=== PATIENT | female | born 1965 | race Caucasian/White ===

== ENCOUNTER 2022-06-09 15:00 | Emergency (ER) | payer OTHER, SELFPAY ==
[2022-06-09 15:35] VITALS: BP 159/80; PULSE 71; RESP 20; TEMP 35.8; O2SAT 97; BMI 31.1
--- NOTE | 2022-06-09 16:00 | ED.WOUNDLAC ---
HPI - Wound/Laceration General Chief Complaint: Laceration/Wound Stated Complaint: Finger Laceration Time Seen by Provider: 06/09/22 15:28 Source: patient Mode of arrival: ambulatory Limitations: no limitations History of Present Illness HPI narrative: Gretchen is a 56-year-old female patient without significant past medical history that presents to emergency department via POV with complaints of laceration to her right 5th digit. The patient states that she was using a mandolin slicer just prior to arrival when she felt a sharp stinging to the right 5th digit and noted laceration with bleeding. She was using a guard with the slicer. The patient placed a dressing on the wound and presented immediately to the emergency department for further evaluation and treatment. She denies numbness, tingling, or weakness. She denies decreased range of motion. She has no other acute concerns or complaints. Her tetanus status is up-to-date. Related Data Home Medications Medication Instructions Recorded Confirmed citalopram 40 mg tablet (Celexa) 40 mg PO DAILY 06/09/22 06/09/22 trazodone 50 mg tablet 50 mg PO DAILY PRN 06/09/22 06/09/22 Allergies Allergy/AdvReac Type Severity Reaction Status Date / Time Sulfa (Sulfonamide Allergy Hives Verified 06/09/22 15:39 Antibiotics) Review of Systems Const: Denies: fever, chills, fatigue or malaise Musculo: Denies: joint pain or limited range of motion Integ/Breast: Reports: new lesion (laceration to left 5th digit); Denies: rash Neuro: Denies: numbness in extremities, weakness in extremities, lack of coordination or dizziness Psych: Denies: anxiety Endo: Denies: fatigue Marc/Lymph: Denies: easy bleeding PFSH PFSH Social History Smoking Status: Current every day smoker What tobacco products do you use: cigarettes Do you use any of these nicotine containing products: None How often do you have a drink containing alcohol: 2-3 times a week How many standard drinks containing alcohol do you have on a typical day: 1 or 2 How often do you have six or more drinks on one occasion: Never AUDIT-C Alcohol total score: 3 Non-prescribed substance use: denies use Exam Const: Vital Signs, click to edit/add: Vital Signs - 24 hr 06/09/22 15:35 Temperature 96.5 F L Pulse Rate [Left P ulse Oximeter] 71 Respiratory Rate 20 Blood Pressure [Le ft Upper Arm] 159/80 H Pulse Oximetry 97 Oxygen Delivery Me thod Room Air Documenting provider has reviewed patient's vital signs: yes Common normals: no apparent distress, average body habitus, oriented x3, no limitations, healthy appearing, alert and well nourished General appearance: cooperative, comfortable, well kempt and well developed; not in distress Orientation/consciousness: Yes awake, Yes oriented to person, Yes oriented to place and Yes oriented to time HENMT: Common normals: normocephalic and head/scalp atraumatic Head and scalp: normocephalic and atraumatic Resp: Common normals: normal respiratory effort and no use of accessory muscles Effort & inspection: able to speak in complete sentences Cardio: Common normals: peripheral pulses 2+ throughout Peripheral pulses: pulses 2+ throughout Extremity: Common normals: normal to inspection, full ROM, normal capillary refill and no clubbing, cyanosis or edema General: normal exam except as noted and other findings (avulsion of the distal right fifth fingerpad on the medial aspect) Neuro: Common normals: oriented x3 Sensorium/orientation: awake, alert, oriented to person, oriented to place and oriented to time Psych: Common normals: mental status grossly normal, thought process normal and speech normal Appearance: well kempt Attitude: calm Speech: normal speech Thought process: normal thought process Thought content: normal thought content Attention/concentration: attention grossly intact Memory/cognition: memory grossly intact Insight: insight good Judgement: judgment good Skin: Trauma: laceration irregular and avulsion (0.7cm x 0.3cm) Nails: normal Course Course Hospital Course: Gretchen presented to the ED for treatment of the laceration of the 5th right digit that was found to be an avulsion injury without skin to close. A surgifoam was applied to the wound with good hemostasis. The patient was then dressed with bacitracin and wound dressing. The patient remained without other acute concern or complaint while in the ED. She had good sensation, movement, and ROM during the encounter. Vital Signs Vital signs: Initial Vital Signs Temperature 96.5 F L 06/09/22 15:35 Temperature Source Temporal Artery Scan 06/09/22 15:35 Pulse Rate 71 06/09/22 15:35 Pulse Rhythm 06/09/22 15:35 Respiratory Rate 20 06/09/22 15:35 Blood Pressure 159/80 H 06/09/22 15:35 Blood Pressure Mean 106 06/09/22 15:35 Pulse Oximetry 97 06/09/22 15:35 Oxygen Delivery Method 06/09/22 15:35 Vital Signs Temperature 96.5 F L 06/09/22 15:35 Pulse Rate 71 06/09/22 15:35 Respiratory Rate 20 06/09/22 15:35 Blood Pressure 159/80 H 06/09/22 15:35 Pulse Oximetry 97 06/09/22 15:35 Oxygen Delivery Method 06/09/22 15:35 Temperature 96.5 F L 06/09/22 15:35 Pulse Rate 71 06/09/22 15:35 Respiratory Rate 20 06/09/22 15:35 Blood Pressure 159/80 H 06/09/22 15:35 Pulse Oximetry 97 06/09/22 15:35 Oxygen Delivery Method 06/09/22 15:35 MDM - Wound/Laceration Differential Diagnosis Differential diagnosis: Likely laceration and avulsion of skin Discharge Plan Discharge Clinical Impression: Avulsion of skin Patient Disposition: Home, Self-Care Condition: Stable Instructions: Skin Avulsion (ED) Additional Instructions: Thank you for choosing [facility] for your care today. Keep wound clean and dry for the next 24-48hrs. Then, clean the wound daily with mild soap (Dove Sensitive Skin Bar, Cetaphil Daily Cleanser, or Vanicream) and warm water. Pat dry and immediately apply a thin layer of Vaseline or triple antibiotic ointment. Wounds that are kept moist with Vaseline heal faster and have a better scar. Cover with a band-aid or nonstick dressing. Only remove the bandage for showers and dressing changes. If you have problems reacting to the band-aid adhesive, cover the wound with a non-stick gauze pad and use paper tape to keep it in place. If you notice increasing pain, redness spreading away from the wound, yellow or green drainage requiring bandages to be changed multiple times per day, or fever greater than 100.5 F, please return for reevaluation. If your wound begins to bleed, apply firm pressure with gauze for 20 continuous minutes. Resist the urge to check the wound by peeking under your gauze. Every time you lift the gauze, the blood vessels open and the clotting process needs to start over again. I recommend calling primary care for follow-up in the next 3-5 days for suture removal as noted. If new or worsening symptoms develop or you have any concerns in the meantime, please call your primary care clinic or return to the ER for re-evaluation. Activity Level: Activity as Tolerated Discharge Diet: Regular Prescriptions: No Action citalopram [Celexa] 40 mg tablet 40 mg PO DAILY trazodone 50 mg tablet 50 mg PO DAILY PRN Follow Up/Referrals: Provider,Not a Local [Primary Care Provider] - Stand Alone Forms: [facility] Info Instructions Procedures Laceration Laceration 1: Pre procedure diagnosis: laceration Post procedure diagnosis: avulsion Site: hand (fifth digit, right hand) Side (If applicable): right Size (cm): 0.7 Description: irregular Depth: simple, single layer Pre-repair: irrigated extensively Conclusion: patient tolerated procedure
[2022-06-09] MEDS: BACITRACIN 0.9 GM PACKET 1 EACH TOPICAL (16:08)
== END 2022-06-09 16:30 | disposition home or self-care (01) ==
PROVIDERS: Emergency Provider Family Medicine
DX: S61.216A Laceration without foreign body of right little finger without damage to nail, initial encounter (principal); W27.8XXA Contact with other nonpowered hand tool, initial encounter; Y93.G3 Activity, cooking and baking; Y92.010 Kitchen of single-family (private) house as the place of occurrence of the external cause
CPT/HCPCS: 99281; 99282; A9270

== ENCOUNTER 2024-07-10 10:06 | Outpatient (CLI) | payer BC, SELFPAY | END 2024-07-10 10:07 | disposition home or self-care (01) | LOC: AMB 07-14 01:09 | PROVIDERS: Visit Provider Family Medicine | DX: R53.1 Weakness (principal) | CPT/HCPCS: A0425; A0427 ==

== ENCOUNTER 2024-07-10 10:35 | Emergency (ER) | payer BC, SELFPAY ==
--- NOTE | 2024-07-10 | CRLHL7_ITS ---
For Patients: As a result of the Century Cures Act, medical imaging exams and procedure reports are released immediately into your electronic medical record. You may view this report before your referring provider. If you have questions, please contact your health care provider. Indication: Code blue, central line and intubation Technique: Chest 1 view Comparison: None Findings/Impression: Cardiovascular and mediastinum: Normal heart size. Endotracheal tube with tip at the mid tracheal level. Enteric tube extends to the level of the diaphragm although the tip is not well seen due to overlying life support devices. Question whether this is coiled with the tip in the distal esophagus. Right internal jugular line with tip at the cavoatrial junction. Lungs and pleural space: Defibrillator pads overlie the chest. No pleural effusion or pneumothorax. Pulmonary cephalization with bilateral interstitial and alveolar opacities consistent with pulmonary edema, greater on the right. Bones and soft tissues: Surgical clips overlie the left lung apex. Dictated by Mario Allan MD @ 07/10/2024 11:50:48 AM (Electronically Signed)
[2024-07-10 10:35] VITALS: TEMP 2.1; TEMP 35.7; BMI 29.9
[2024-07-10] MEDS: EPINEPHrine 0.1 MG/ML SYRINGE 1 MG IVP ×4 (11:00→16:15)
[2024-07-10] MEDS: MIDAZOLAM HCL 1 MG/ML inj IVP ×2 (11:00→11:30)
[2024-07-10] MEDS: AMIODARONE 50 MG/ML 300 MG IVP (11:00)
[2024-07-10] MEDS: ATROPINE 1 MG/10 ML SYRINGE IVP ×3 (11:00→11:15)
[2024-07-10] MEDS: CALCIUM CHLORIDE IVPB (11:05)
[2024-07-10] MEDS: NALOXONE 1 MG/ML SYRINGE IVPB (11:15)
[2024-07-10 11:22] LABS: HCO3 VBG 13 mmol/L (21-28); PO2 VBG < 30.1 mmHG (25-47)
[2024-07-10 11:24] LABS: Basophils Absolute Auto 0.02 K/uL (0.00-0.30); Basophils Percent Auto 0.2 % (0.0-3.0); Eosinophils Absolute Auto 0.07 K/uL (0.00-0.50); Eosinophils Percent Auto 0.8 % (0.0-7.0); Hematocrit 50.6 % (33.0-51.0); Hemoglobin* 15.5 gm/dL (12.0-16.0); Immature Granulocytes Abs Auto 0.22 K/uL (0.00-0.30); Immature Granulocytes Pct Auto 2.4 %; Lactate* 9.8 mmol/L (0.5-1.9); Lymphocytes Percent Auto 28.2 % (20-44); Mean Corpuscular HGB Conc 31 gm/dL (32-36); Mean Corpuscular Hemoglobin 33 pg (26-34); Mean Corpuscular Volume 106 fL (80-100); Monocytes Percent Auto 1.6 % (0.0-11.0); Neutrophils Absolute Auto 6.16 K/uL (1.7-7.0); Neutrophils Percent Auto 66.8 % (42.0-72.0); Platelet Count* 99 K/uL (140-440); RDW Coefficient of Variation % 11.7 % (11.5-15.5); Red Blood Count 4.76 m/uL (4.00-5.20); White Blood Count* 9.22 K/uL (4.50-11.00); pH VBG 6.854 (7.32-7.43)
[2024-07-10 11:25] LABS: PCO2 VBG 76 mmHG (40-50)
[2024-07-10] MEDS: SODIUM BICARBONATE 1 MEQ/ML 50 MEQ IV ×3 (11:25→13:30)
[2024-07-10 11:26] LABS: Slide Review Reflex No
[2024-07-10] MEDS: NALOXONE 1 MG/ML SYRINGE 2 MG IV (11:30)
[2024-07-10 11:39] LABS: Chloride* 116 mmol/L (96-114); Glucose* 228 mg/dL (60-115); Potassium* 3.7 mmol/L (3.6-5.1); Sodium* 140 mmol/L (135-149)
--- NOTE | 2024-07-10 11:50 | ED.NURSE ---
ketamine started by air care team
[2024-07-10 11:51] LABS: Anion Gap 14 mEq/L (7-15); Carbon Dioxide* 10 mmol/L (20-32)
[2024-07-10 11:52] LABS: Blood Urea Nitrogen* 9 mg/dL (7-30); Calcium* 8.1 mg/dL (8.4-10.6); Estimated Glomerular Filt Rate 64 ml/min
[2024-07-10 11:54] LABS: Alanine Aminotransferase* 154 U/L (4-35); Albumin* 1.9 g/dL (3.3-5.0); Alkaline Phosphatase* 72 U/L (40-150); Aspartate Amino Transferase* 204 U/L (12-35); Bilirubin Direct* 0.4 mg/dL (0.0-0.5); Bilirubin Total* 0.5 mg/dL (0.1-1.5); Total Protein* 3.8 g/dL (6.0-8.3); Troponin I* 0.05 ng/mL (0.01-0.04)
[2024-07-10] MEDS: fentaNYL 100 MCG/2 ML inj 50 MCG IVP (11:55)
[2024-07-10 11:59] LABS: Appearance Urine Cloudy (Clear); Bilirubin Urine 1+ (Negative); Blood Urine 3+ (Negative); Color Urine Red (Yellow); Glucose Urine 2+ (Negative); Ketones Urine Trace (Negative); Leukocyte Esterase Urine Negative (Negative); Nitrite Urine Positive (Negative); Protein Urine 3+ (Negative); Urobilinogen Urine 0.2 (0.2-1.0)
[2024-07-10 12:06] LABS: Amphetamine Screen Urine Negative (Negative); Barbiturate Screen Urine Negative (Negative); Benzodiazepines Screen Urine Negative (Negative); Cannabinoid Screen Urine POSITIVE (Negative); Cocaine Screen Urine Negative (Negative); Methadone Screen Urine Negative (Negative); Methamphetamines Screen Urine Negative (Negative); Opiate Screen Urine Negative (Negative); Oxycodone Screen Urine Negative (Negative); Phencyclidine Screen Urine Negative (Negative); Tricyclic Antidepressant Urine Negative (Negative)
--- NOTE | 2024-07-10 12:57 | P.PCN_ITS ---
Procedure Note Date Seen: 07/10/24 Will [facility] bill your pro fee for this procedure?: Yes Pre-op diagnosis: Hypotension after cardiac arrest Post-op diagnosis: same Procedure: Attempted left femoral arterial line placement Procedure Description: The patient was seen in the ER for cardiac arrest. ROSC was obtained and transfer to a tertiary care facility was arranged. The patient was on increasing pressors but no blood pressure was able to be obtained. Air transport desired an arterial line for blood pressure monitoring. The patient's radial arteries were palpated, no pulse was palpable. Ultrasound was used to visualize the radial arteries and no obvious pulsatile vessel was noted. I examined the left femoral area. The left femoral artery was visualized with ultrasound easily, a needle was advanced. Blood return was very weakly pulsatile. Using seldinger technique, a wire was passed through the needle. The wire would not thread easily into the vessel. The wire was removed and the needle angle adjusted and flow stopped. I attempted a second time, again under ultrasound, to access the femoral artery. Again, the needle was advanced into the vessel with weak pulsatile flow. The wire was advanced this time more easily past the wire, but I could not advance it far enough into the artery. I removed the wire and again there was pulsatile flow. I attempted to pass the wire a second time but again I was unable to pass it. At this point the transport team decided to travel via ground and for this an arterial line was not necessary and therefore I aborted further attempts. Pressure was held on the left groin. No bleeding was noted. Surgeon: Elieser Condition: critical Disposition: other (ER)
--- NOTE | 2024-07-10 13:04 | W.ANESCHARGE ---
Anesthesia Charges Start Date/Time Anesthesia Start Date: 07/10/24 Anesthesia Start Time: 10:30 Stop Date/Time Anesthesia Stop Date: 07/10/24 Anesthesia Stop Time: 11:30 Summary Emergency: [employer]
[2024-07-10] MEDS: NALOXONE 1 MG/ML SYRINGE 2 MG IVPB (13:25)
--- NOTE | 2024-07-10 13:27 | PM.ANBPRC ---
PFSH PFS Social History Smoking Status: Current every day smoker What tobacco products do you use: cigarettes Do you use any of these nicotine containing products: None How often do you have a drink containing alcohol: 2-3 times a week How many standard drinks containing alcohol do you have on a typical day: 1 or 2 How often do you have six or more drinks on one occasion: Never AUDIT-C Alcohol total score: 3 Non-prescribed substance use: denies use Meds Home Medications and Allergies Home Medications ?Medication ?Instructions ?Recorded ?Confirmed ?Type citalopram 40 mg tablet (Celexa) 40 mg PO DAILY 06/09/22 06/09/22 History trazodone 50 mg tablet 50 mg PO DAILY PRN 06/09/22 06/09/22 History Allergies Allergy/AdvReac Type Severity Reaction Status Date / Time Sulfa (Sulfonamide Allergy Hives Verified 06/09/22 15:39 Antibiotics) Results Labs Labs: Laboratory Results - last 24 hr 07/10/24 07/10/24 11:15 11:50 WBC 9.22 RBC 4.76 Hgb 15.5 Hct 50.6 MCV 106 H MCH 33 MCHC 31 L RDW Coeff of Tessie 11.7 Plt Count 99 L Neut % (Auto) 66.8 Lymph % (Auto) 28.2 [place] % (Auto) 1.6 Eos % (Auto) 0.8 Baso % (Auto) 0.2 Neut # (Auto) 6.16 Lymph # (Auto) 2.60 [place] # (Auto) 0.10 Eos # (Auto) 0.07 Baso # (Auto) 0.02 Abs Immat Gran (auto) 0.22 Imm/Tot Granulo (auto) 2.4 VBG pH 6.854 L* VBG pCO2 76 H* VBG pO2 < 30.1 VBG HCO3 13 L Sodium 140 Potassium 3.7 Chloride 116 H Carbon Dioxide 10 L Anion Gap 14 BUN 9 Creatinine 1.0 Estimated GFR 64 Glucose 228 H Lactate 9.8 H* Calcium 8.1 L Total Bilirubin 0.5 Direct Bilirubin 0.4 AST 204 H ALT 154 H Alkaline Phosphatase 72 Troponin I 0.05 H Total Protein 3.8 L Albumin 1.9 L Urine Color Red A Urine Appearance Cloudy A Urine pH 6.0 Ur Specific [place] 1.020 Urine Protein 3+ A Urine Glucose (UA) 2+ A Urine Ketones Trace A Urine Blood 3+ A Urine Nitrite Positive A Urine Bilirubin 1+ A Urine Urobilinogen 0.2 Ur Leukocyte Esterase Negative Urine RBC 10-25 A Urine WBC 2-5 Ur Squamous Epith Cells None Urine Bacteria None Urine Opiates Screen Negative Ur Oxycodone Screen Negative Urine Methadone Screen Negative Ur Barbiturates Screen Negative U Tricyclic Antidepress Negative Ur Phencyclidine Scrn Negative Ur Amphetamines Screen Negative U Methamphetamines Scrn Negative U Benzodiazepines Scrn Negative Urine Cocaine Screen Negative U Marijuana (THC) Screen POSITIVE A Ur Drug Screen Comment See Note Anesthesia Procedures Airway Patient Location: ED Urgency: emergent Start Time: 10:30 Stop Time: 11:30 Start Date: 07/10/24 Stop Date: 07/10/24 Anesthesiologist: Rj Espinal [employer] SPECIALIST: Gloria Denton Other Anesthesia Staff: Junaid Gayle Performed by: BELLA Indications for Airway Management: cardio/ pulmonary arrest Spontaneous Ventilation: absent Sedation Level: minimal Preoxygenated: Yes Mask Difficulty Assessment: 0 - not attempted Planned Trial Extubation: No Final Airway Type: endotracheal airway Dentition Unchanged: Yes
[2024-07-10 13:38] VITALS: RESP 26
--- NOTE | 2024-07-10 14:10 | ED.NURSE ---
at 1355 family requested to see pt while aislinn running. after entering room, family requesting to stop aislinn/CPR . all efforts stopped at 1355. family was in room
--- NOTE | 2024-07-10 14:19 | ED_ITS ---
HPI - General Adult General Date Seen: 07/10/24 Chief complaint: Altered Mental Status Stated complaint: weakness Time Seen by Provider: 07/10/24 11:56 Source: patient and EMS Mode of arrival: EMS Limitations: no limitations and altered mental status History of Present Illness HPI narrative: Patient is a 58-year-old female brought in by EMS for weakness. EMS states when they arrived her blood pressure sure was 100 systolic. She called them. On the route and EMS said her blood pressure systolic dropped down to the 50s. She was unable to answer any questions at that time and became obtunded. I was called into the room when she arrived and patient is obtunded not able answer questions and had shallow breathing. Related Data Home Medications ?Medication ?Instructions ?Recorded ?Confirmed citalopram 40 mg tablet (Celexa) 40 mg PO DAILY 06/09/22 06/09/22 trazodone 50 mg tablet 50 mg PO DAILY PRN 06/09/22 06/09/22 Allergies Allergy/AdvReac Type Severity Reaction Status Date / Time Sulfa (Sulfonamide Allergy Hives Verified 06/09/22 15:39 Antibiotics) Review of Systems Status of ROS: Reports: unobtainable due to medical condition PFSH PFS Social History Smoking Status: Current every day smoker What tobacco products do you use: cigarettes Do you use any of these nicotine containing products: None How often do you have a drink containing alcohol: 2-3 times a week How many standard drinks containing alcohol do you have on a typical day: 1 or 2 How often do you have six or more drinks on one occasion: Never AUDIT-C Alcohol total score: 3 Non-prescribed substance use: denies use and marijuana (any form) Exam Narrative: Exam Narrative: Airway: Very shallow breathing noted, does not appear to be obstructed Breathing: Very shallow, unable to speak due to mental status Circulation: Weak pulses Const: Well-nourished, Well-developed, obtunded Eyes: PERRL, no conjunctival injection, and symmetrical lids HENT: Atraumatic external nose and ears. Moist mucous membranes. Neck: Symmetric, trachea midline, No thyromegaly. CVS: Bradycardic, weak pulses RESP: Shallow breaths initially GI: Nondistended MSK:Extremities w/o deformity, Normal Active ROM Skin: Warm, Dry. No rashes or lesions. Neuro: Not following command, unresponsive Psych: Obtunded Const: Vital Signs, click to edit/add: Vital Signs - 24 hr 07/10/24 10:35 07/10/24 12:38 Temperature 35.7 F L Oxygen Delivery Me thod Nasal Cannula Intubated Course Vital Signs Vital signs: Initial Vital Signs Temperature 35.7 F L 07/10/24 10:35 Temperature Source Rectal 07/10/24 10:35 Oxygen Delivery Method Nasal Cannula 07/10/24 10:35 Vital Signs Temperature 35.7 F L 07/10/24 10:35 Oxygen Delivery Method Nasal Cannula 07/10/24 10:35 Temperature 35.7 F L 07/10/24 10:35 Respiratory Rate 26 H 07/10/24 13:38 Oxygen Delivery Method Intubated 07/10/24 12:38 Medications Administered Medications: Discontinued Medications Generic Name Dose Route Start Last Admin Trade Name Freq PRN Reason Stop Dose Admin Amiodarone HCl 300 mg 07/10/24 10:58 07/10/24 11:00 Amiodarone 50 Mg/Ml Inj IVP 07/10/24 10:59 300 mg ONCE ONE Administration Atropine Sulfate 1 mg 07/10/24 10:45 07/10/24 11:00 Atropine 1 Mg/10 Ml Syringe IVP 07/10/24 10:46 1 mg ONCE ONE Administration Atropine Sulfate 1 mg 07/10/24 11:11 07/10/24 11:10 Atropine 1 Mg/10 Ml Syringe IVP 07/10/24 11:12 1 mg ONCE ONE Administration Atropine Sulfate 1 mg 07/10/24 11:17 07/10/24 11:15 Atropine 1 Mg/10 Ml Syringe IVP 07/10/24 11:18 1 mg ONCE ONE Administration Atropine Sulfate 1 mg 07/10/24 13:24 07/10/24 13:25 Atropine 0.4 Mg/Ml Inj IV 1 mg ONCE PRN Administration Calcium Chloride 1 g 07/10/24 11:07 07/10/24 11:05 Calcium Chloride 1 G/10 Ml Inj IVPB 07/10/24 11:08 1 g ONCE ONE Administration Epinephrine HCl 1 mg 07/10/24 10:50 07/10/24 11:00 Epinephrine 0.1 Mg/Ml Syringe IVP 07/10/24 10:51 1 mg ONCE ONE Administration Epinephrine HCl 1 mg 07/10/24 11:03 07/10/24 11:00 Epinephrine 0.1 Mg/Ml Syringe IVP 07/10/24 11:04 1 mg ONCE ONE Administration Epinephrine HCl 1 mg 07/10/24 11:08 07/10/24 16:15 Epinephrine 0.1 Mg/Ml Syringe IVP 07/10/24 11:09 1 mg ONCE ONE Administration Epinephrine HCl 1 mg 07/10/24 13:20 07/10/24 13:20 Epinephrine 0.1 Mg/Ml Syringe IVP 07/10/24 13:21 1 mg ONCE ONE Administration Fentanyl 50 mcg 07/10/24 11:56 07/10/24 11:55 Fentanyl 100 Mcg/2 Ml Inj IVP 07/10/24 11:57 50 mcg ONCE ONE Administration Sodium Bicarbonate 150 meq/ 1,150 mls @ 150 mls/hr 07/10/24 12:20 07/10/24 16:37 Dextrose IV 150 mls/hr .[id number] BOYD Administration Midazolam HCl 1 mg 07/10/24 10:45 07/10/24 11:00 Midazolam Hcl 1 Mg/Ml Inj IVP 07/10/24 10:46 1 mg ONCE ONE Administration Midazolam HCl 1 mg 07/10/24 11:49 07/10/24 11:30 Midazolam Hcl 1 Mg/Ml Inj IVP 07/10/24 11:50 1 mg ONCE ONE Administration Naloxone HCl 1 mg 07/10/24 11:13 07/10/24 11:15 Naloxone 1 Mg/Ml Syringe IVPB 07/10/24 11:14 1 mg ONCE ONE Administration Naloxone HCl 2 mg 07/10/24 11:28 07/10/24 11:30 Naloxone 1 Mg/Ml Syringe IV 07/10/24 11:29 2 mg ONCE ONE Administration Naloxone HCl 2 mg 07/10/24 13:23 07/10/24 13:25 Naloxone 1 Mg/Ml Syringe IVPB 07/10/24 13:24 2 mg ONCE ONE Administration Sodium Bicarbonate 50 meq 07/10/24 11:27 07/10/24 11:25 Sodium Bicarbonate 1 Meq/Ml Inj IV 07/10/24 11:28 50 meq ONCE ONE Administration Sodium Bicarbonate 50 meq 07/10/24 12:16 07/10/24 12:15 Sodium Bicarbonate 1 Meq/Ml Inj IV 07/10/24 12:17 50 meq ONCE ONE Administration Sodium Bicarbonate 50 meq 07/10/24 13:31 07/10/24 13:30 Sodium Bicarbonate 1 Meq/Ml Inj IV 07/10/24 13:32 50 meq ONCE ONE Administration Succinylcholine Chloride 80 mg 07/10/24 10:46 07/10/24 16:12 Succinylcholine 20 Mg/Ml Inj IVP 07/10/24 10:47 80 mg ONCE ONE Administration Medical Decision Making MDM Narrative Medical decision making narrative: Patient is a 58-year-old female presenting to the emergency department hypotensive, bradycardic, unresponsive. When I 1st arrived she did have a very weak pulse and had shallow breathing but she was hypotensive and her breathing continued to get worse. At that time was decided to call a code blue to get staff available to help as fast as possible. We decided to intubate as I do not believe she was breathing adequately and CPR was started as we could no longer feel a pulse. Were unable to get a peripheral line so an IO was placed in each tibia. Once the aisles were placed we use pressure of aches to get into L of fluids. She had no response to this. ACLS was started and 1st dose was atropine with her bradycardia. The 1st dose of atropine brought her heart rate up to the 110s for short amount of time but she was still hypotensive. When they were able to get her intubated I have brownish green material was suctioned from the tube. Were having difficulty getting her saturations and end-tidal elevated and were just and vent settings accordingly with no improvement. Also gave calcium in case this is related to hyperkalemia. ACS protocol was followed. Luis F used for CPR I considered a tension pneumothorax causing his symptoms but she had good breath sounds bilaterally when she was intubated. PE seems unlikely as when I was able to get the ultrasound on her heart I do not see a dilated right ventricle. I also do not see cardiac tamponade. She was not hypothermic. Her electrolytes came back showing no abnormalities that would be causing her symptoms. Did consider bradycardia could be caused by an overdose and did try Narcan and the 1st dose of Narcan did seem to improve her heart rate into the 40s. Continue ACLS. She did not respond to the fluid boluses at all and hesitant to keep pumping her full of fluid as it could cause fluid overload worsening her symptoms. Lab work returned showing normal electrolytes but she did have a lactic acidosis in a pH of 6.8. Bicarb was given. Eventually we gave another dose of Narcan and suddenly her heart rate improved and now she appears to have a normal sinus rhythm in the 90s. Strong femoral pulses felt. Unsure if this was related to the Narcan. Either way she still hypotensive and nor epi was started while as placed a central line. Central line place nor epi switched to the central line. Versed and ketamine used for sedation. Did not want to use propofol as she was having issues hypertension. If decided to transfer her to [place] ICU and my colleague helped with the transfer. Ultrasound of the heart was done by myself and did show a strong cardiac squeeze. Flight crew arrived. When flight crew arrived patient became hypotensive again and epi was added. Patient was fighting the ventilator and multiple ketamine boluses given to try and sedate her. Hesitant to try other medications as other sedation medications can cause hypotension and she was already having issues hypotension. We were eventually able to get her blood pressure improved again and she was maxed out on all drips. Before she was going to leave her pulse became very weak and could not get a blood pressure. Due to that an art line need to be placed before they could take care via air due to her being unstable. While awaiting to get art line and we did call ground transport to trying get her transverse fast as possible if it has to be via ground. We were unable to get the art line the patient's pulses were coming weaker. She became PA again hand bradycardiac. We then tried atropine, bicarb, epi, Narcan and nothing seemed to improve. I did a cardiac ultrasound again and now her heart seems to be barely moving. I am considering all causes and with the improvement in her symptoms earlier with medications and the normal appearing heart on ultrasound PE and tamponade still seem unlikely. Still have good lung sounds and no sign tension pneumothorax. Electrolytes were normal and elected abnormalities do not believe to be the cause. Her family states she has no history of overdoses and is not type person who would overdose on any medications. No other medication she is prescribed but I am aware of would be likely to cause the symptoms. Does not appear to be serotonin syndrome. Part of this could be from acidosis but unsure why she is developing acidosis. Acidosis might all be from lactate but that brings up but is causing lactic acidosis peer More bicarb was given. Did repeat labs and her sodium went up to 150 but does not seem to be high enough that would have been causing the symptoms and she became more acidotic. ACS protocol follow Considering she was initially bradycardic and hypotensive I did consider she could be having neurogenic shock. She did have some rectal bleeding and blood in her catheter that was placed in also seem to be developing hematoma whenever she was straight stick. She could of been developing DIC likely from how sick she was. There was possible to she had a brain herniation causing this neurogenic shock but it seems odd that her symptoms improved without hypertonic saline. Her pupils are now dilated and are nonreactive. Considering the length of treatment I do not believe she will be able to recover from this and after extensive talk with other staff members I decided to terminate CPR. I did speak to the family before terminating CPR and they were agreeable to this. Time of 13:55 Lab Data Labs: Lab Results 07/10/24 07/10/24 Range/Units 11:15 11:50 WBC 9.22 (4.50-11.00) K/uL RBC 4.76 (4.00-5.20) m/uL Hgb 15.5 (12.0-16.0) gm/dL Hct 50.6 (33.0-51.0) % MCV 106 H (80-100) fL MCH 33 (26-34) pg MCHC 31 L (32-36) gm/dL RDW Coeff of Tessie 11.7 (11.5-15.5) % Plt Count 99 L (140-440) K/uL Neut % (Auto) 66.8 (42.0-72.0) % Lymph % (Auto) 28.2 (20-44) % [place] % (Auto) 1.6 (0.0-11.0) % Eos % (Auto) 0.8 (0.0-7.0) % Baso % (Auto) 0.2 (0.0-3.0) % Neut # (Auto) 6.16 (1.7-7.0) K/uL Lymph # (Auto) 2.60 (0.90-2.90) K/uL [place] # (Auto) 0.10 (0.00-0.90) K/UL Eos # (Auto) 0.07 (0.00-0.50) K/uL Baso # (Auto) 0.02 (0.00-0.30) K/uL Abs Immat Gran (auto) 0.22 (0.00-0.30) K/uL Imm/Tot Granulo (auto) 2.4 % VBG pH 6.854 L* (7.32-7.43) VBG pCO2 76 H* (40-50) mmHG VBG pO2 < 30.1 (25-47) mmHG VBG HCO3 13 L (21-28) mmol/L Sodium 140 (135-149) mmol/L Potassium 3.7 (3.6-5.1) mmol/L Chloride 116 H (96-114) mmol/L Carbon Dioxide 10 L (20-32) mmol/L Anion Gap 14 (7-15) mEq/L BUN 9 (7-30) mg/dL Creatinine 1.0 (0.5-1.5) mg/dL Estimated GFR 64 ml/min Glucose 228 H (60-115) mg/dL Lactate 9.8 H* (0.5-1.9) mmol/L Calcium 8.1 L (8.4-10.6) mg/dL Total Bilirubin 0.5 (0.1-1.5) mg/dL Direct Bilirubin 0.4 (0.0-0.5) mg/dL AST 204 H (12-35) U/L ALT 154 H (4-35) U/L Alkaline Phosphatase 72 (40-150) U/L Troponin I 0.05 H (0.01-0.04) ng/mL Total Protein 3.8 L (6.0-8.3) g/dL Albumin 1.9 L (3.3-5.0) g/dL Urine Color Red A (Yellow) Urine Appearance Cloudy A (Clear) Urine pH 6.0 (5.0-8.5) Ur Specific [place] 1.020 (1.000-1.030) Urine Protein 3+ A (Negative) Urine Glucose (UA) 2+ A (Negative) Urine Ketones Trace A (Negative) Urine Blood 3+ A (Negative) Urine Nitrite Positive A (Negative) Urine Bilirubin 1+ A (Negative) Urine Urobilinogen 0.2 (0.2-1.0) Ur Leukocyte Esterase Negative (Negative) Urine RBC 10-25 A (0-2) Urine WBC 2-5 (0-5) Ur Squamous Epith Cells None (None-Few) Urine Bacteria None (None) Urine Opiates Screen Negative (Negative) Ur Oxycodone Screen Negative (Negative) Urine Methadone Screen Negative (Negative) Ur Barbiturates Screen Negative (Negative) U Tricyclic Antidepress Negative (Negative) Ur Phencyclidine Scrn Negative (Negative) Ur Amphetamines Screen Negative (Negative) U Methamphetamines Scrn Negative (Negative) U Benzodiazepines Scrn Negative (Negative) Urine Cocaine Screen Negative (Negative) U Marijuana (THC) Screen POSITIVE A (Negative) Ur Drug Screen Comment See Note Critical Care Time Critical Care Time Critical Care Time: Yes Attestation: The patient required my highest level preparedness to intervene emergently and I personally spent this critical care time directly and personally managing the patient. This critical care time included: Obtaining a history; Examining the patient; Pulse oximetry; Ordering and reviewing of studies; Arranging urgent treatment with development of a management plan; Evaluation of patients response to treatment; Frequent reassessment discussions with other providers. This critical care time was performed to assess and manage the high probability of imminent life-threatening deterioration that could result in multiorgan failure. It was exclusive of separate billable procedures and treating other patients and teaching time. Total Critical Care Time in Minutes: 120 Discharge Plan Discharge Clinical Impression: Cardiac arrest Patient Disposition: Date/Time: 07/10/24 13:55 Procedures Central Line Placement Right IJ: Name of person performing procedure: David Drake Patient Placed on Monitor/Pulse Ox: Yes MD Prep: mask, gown, gloves and other Central Line Prep: Chlorhexidine scrub and sterile drapes applied Ultrasound Used for Placement: Yes Central Line Lumen Inserted: triple Post Procedure: sutured in place, good blood return, all ports aspirated, flushed, capped and sterile dressing applied Post Procedure X-Ray: tip of catheter in good position and no pneumothorax seen Estimated blood loss (if any): none Complications: none Patient Tolerated Procedure: well
--- NOTE | 2024-07-10 15:56 | ED.NURSE ---
See code blue record. Bridgett's here .
[2024-07-10] MEDS: SUCCINYLCHOLINE 20 MG/ML INJ 80 MG IVP (16:12)
== END 2024-07-10 15:30 | disposition expired ==
PROVIDERS: Emergency Provider Student in an Organized Health Care Education/Training Program
DX: I46.9 Cardiac arrest, cause unspecified (principal)
CPT/HCPCS: 92950; 31500; 36415; 71045; 80048; 80076; 80306; 81001; 82803; 83605; 84484; 85025; 87086; 93005; 96365; 96366; 96375; 99140; 99285; 99291; 99292; J0171; J0282; J0330; J0461; J2250; J2310; J3010; J7070